=== PATIENT | female | born 1990 | race African-American/Black ===

== ENCOUNTER 2021-12-14 14:03 | Emergency (ER) | payer SELFPAY ==
[~2021-12-14] VITALS: Ht 162.6 cm; Wt 41.4 kg
[2021-12-14 14:14] VITALS: TEMP 98.3
[2021-12-14 14:37] LABS: MEAN CELL VOLUME 64 fl (80.0-100.0); MEAN CORPUSCULAR HGB CONC 30 g/dl (33.0-37.0); MEAN PLATELET VOLUME 11.4 fl (7.4-10.4); PLATELET COUNT 407 K/mm3 (130-400); RED BLOOD COUNT 4.72 M/mm3 (4.10-5.30); REDCELL DISTRIBUTION WIDTH-CV 18.5 % (11.5-14.5)
[2021-12-14 14:38] LABS: HEMATOCRIT 30.3 % (37.0-47.0); MEAN CORPUSCULAR HEMOGLOBIN 19 pg (27-31)
[2021-12-14 14:54] LABS: ALBUMIN 4.2 gm/dL (3.5-5.0); ALKALINE PHOSPHATASE 69 U/L (40-150); ANION GAP 14 mmol/L (7-16); AST,SGOT 9 U/L (5-34); BILIRUBIN,TOTAL 0.5 mg/dL (0.2-1.2); BLOOD UREA NITROGEN 7 mg/dL (7-19); CALCIUM 8.9 mg/dL (8.4-10.2); CARBON DIOXIDE 24 mmol/L (22-29); CHLORIDE 104 mmol/L (98-107); CREATININE, serum 0.76 mg/dL (0.57-1.11); GLUCOSE 97 mg/dL (70-99); LIPASE 220 U/L (8-78); SODIUM 142 mmol/L (136-145)
[2021-12-14 14:55] LABS: ALANINE AMINOTRANSFERASE < 6 U/L (0-55); POTASSIUM 2.9 mmol/L (3.5-4.5)
[2021-12-14 15:53] LABS: EOSINOPHIL 1 % (0-4); LYMPHOCYTE 23 % (20.0-51.0); NEUTROPHILS 71 % (42.0-75.2)
[2021-12-14 15:54] LABS: OVALOCYTES 1+
[2021-12-14 15:55] LABS: ANISOCYTOSIS 2+; HYPOCHROMIA 3+; MICROCYTOSIS 2+; PLATELET ESTIMATE INCREASED (NORMAL); SCHISTOCYTES 2+
[2021-12-14] MEDS ORDERED: K-TAB20 PO (16:17)
[2021-12-14 17:00] VITALS: BP 123/87; PULSE 85
[2021-12-15 07:47] LABS: PATHOLOGY DIFF REVIEW OK
== END 2021-12-14 17:00 | disposition home or self-care (01) ==
LOC: COL.ER 14:03
PROVIDERS: Nurse Practitioner Primary Care
DX: N83.202 Unspecified ovarian cyst, left side (principal); E87.6 Hypokalemia; D64.9 Anemia, unspecified; R74.8 Abnormal levels of other serum enzymes; K44.9 Diaphragmatic hernia without obstruction or gangrene; Z85.41 Personal history of malignant neoplasm of cervix uteri; Z98.890 Other specified postprocedural states; Z91.040 Latex allergy status; Z28.310 Unvaccinated for COVID-19
CPT/HCPCS: J3480; J7030; Q9967

== ENCOUNTER 2022-01-19 08:31 | Day surgery (SDC) | payer SELFPAY ==
[~2022-01-19 08:31] MED LIST: K-TAB20 PO
[2022-01-19] MEDS ORDERED: ZYRTEC 10MG10 MG PO (09:11)
[2022-01-19 11:30] VITALS: BP 126/88; PULSE 96; TEMP 97.3
--- NOTE | 2022-01-19 11:30 | NUR ---
PATIENT TO ROOM 9 VIA CART. ASSIST X 1 TO CHAIR. PATIENT REQUESTS ROOM TEMP WATER AND NOTHING TO EAT. MOM AT BEDSIDE. VITAL SIGNS WNL. WILL CONTINUE TO MONITOR.
[2022-01-19 11:45] VITALS: BP 120/88; PULSE 96
--- NOTE | 2022-01-19 11:45 | NUR ---
PATIENT IS ALERT AND ORIENTED. WAITING FOR DOCTOR TO SPEAK WITH HER. VITAL SIGNS WNL. MOM STILL AT BEDSIDE. WILL CONTINUE TO MONITOR.
[2022-01-19 12:00] VITALS: BP 124/94; PULSE 69
--- NOTE | 2022-01-19 12:00 | NUR ---
PATIENT IS READY FOR DISCHARGE. WAITING FOR DOCTOR TO COME SPEAK WITH PATIENT. VITAL SIGNS WNL. IV DISCONTINUED. DISCHARGE INSTRUCTIONS REVIEWED WITH PATIENT AND MOM. WILL DISCHARGE AFTER THE DOCTOR COMES IN.
== END 2022-01-19 12:37 | disposition home or self-care (01) ==
LOC: SDCO 08:31
DX: K57.30 Diverticulosis of large intestine without perforation or abscess without bleeding (principal); K29.50 Unspecified chronic gastritis without bleeding; K51.50 Left sided colitis without complications; K51.90 Ulcerative colitis, unspecified, without complications; K64.4 Residual hemorrhoidal skin tags
CPT/HCPCS: J2704; J7120

== ENCOUNTER 2022-02-13 16:43 | Emergency (ER) | payer MEDICAID ==
[~2022-02-13] VITALS: Ht 162.6 cm; Wt 45.5 kg
[~2022-02-13 16:43] MED LIST changes: +ZYRTEC 10MG10 MG PO
[2022-02-13 16:54] VITALS: TEMP 98.5
[2022-02-13 17:25] LABS: BASO % 0.2 % (0.0-2.0); GRAN # 9.8 K/mm3 (1.4-6.5); GRAN % 82.1 % (42.2-75.2); LYMPH # 1.8 K/mm3 (1.2-3.4); LYMPH % 15.4 % (20.0-51.0); MEAN CELL VOLUME 64 fl (80.0-100.0); MEAN CORPUSCULAR HGB CONC 29 g/dl (33.0-37.0); MEAN PLATELET VOLUME 11.3 fl (7.4-10.4); MONO # 0.2 K/mm3 (0.1-0.6); PLATELET COUNT 383 K/mm3 (130-400); RED BLOOD COUNT 4.17 M/mm3 (4.10-5.30); REDCELL DISTRIBUTION WIDTH-CV 20.6 % (11.5-14.5)
[2022-02-13 17:26] LABS: HEMATOCRIT 26.6 % (37.0-47.0); HEMOGLOBIN 7.7 g/dl (12.5-16.0); MEAN CORPUSCULAR HEMOGLOBIN 18 pg (27-31)
[2022-02-13 17:37] LABS: ALANINE AMINOTRANSFERASE 16 U/L (0-55); ALBUMIN 4.2 gm/dL (3.5-5.0); ALKALINE PHOSPHATASE 53 U/L (40-150); ANION GAP 15 mmol/L (7-16); AST,SGOT 14 U/L (5-34); BILIRUBIN,TOTAL 0.8 mg/dL (0.2-1.2); BLOOD UREA NITROGEN 10 mg/dL (7-19); C-REACTIVE PROTEIN 0.03 mg/dL (0.00-0.50); CALCIUM 9.2 mg/dL (8.4-10.2); CARBON DIOXIDE 20 mmol/L (22-29); CHLORIDE 105 mmol/L (98-107); CREATININE, serum 0.64 mg/dL (0.57-1.11); GLUCOSE 101 mg/dL (70-99); LIPASE 20 U/L (8-78); POTASSIUM 3.8 mmol/L (3.5-4.5); SODIUM 140 mmol/L (136-145); TOTAL PROTEIN 7.8 gm/dL (6.2-8.1)
[2022-02-13 17:44] LABS: TROPONIN-I < 0.010 ng/mL (0.00-0.033)
[2022-02-13 18:25] LABS: COLLECTION METHOD CLEAN CATCH
[2022-02-13 18:44] LABS: MUCOUS Present (NOT PRESENT); PH 6 (5-8); URINE APPEARANCE Clear (CLEAR/HAZY); URINE BACTERIA None Seen /hpf (NONE SEEN); URINE BLOOD 1+ (NEGATIVE); URINE COLOR Yellow (YELLOW); URINE GLUCOSE Negative (NEGATIVE); URINE KETONE Negative (NEGATIVE); URINE NITRATE Negative (NEGATIVE); URINE PROTEIN(semi-quant) Negative (NEGATIVE); URINE UROBILINOGEN Negative (NEGATIVE)
[2022-02-13] MEDS ORDERED: NORCO 325 MG-51 TAB PO (19:53)
[2022-02-13 20:10] VITALS: BP 118/76; PULSE 82
== END 2022-02-13 20:10 | disposition home or self-care (01) ==
LOC: COL.ER 16:43
PROVIDERS: Nurse Practitioner
DX: D64.89 Other specified anemias (principal); R10.13 Epigastric pain; R07.89 Other chest pain; Z91.040 Latex allergy status; Z87.19 Personal history of other diseases of the digestive system; Z28.310 Unvaccinated for COVID-19
CPT/HCPCS: J2270; J2405; J7030

== ENCOUNTER 2022-12-07 08:29 | Emergency (ER) | payer MEDICAID ==
[~2022-12-07] VITALS: Ht 162.6 cm; Wt 45.5 kg
[~2022-12-07 08:29] MED LIST changes: +NORCO 325 MG-51 TAB PO
[2022-12-07 08:33] VITALS: TEMP 98.3
[2022-12-07] MEDS ORDERED: PREDNISONE20 MG PO (09:52)
[2022-12-07 09:58] VITALS: BP 116/86; PULSE 99
== END 2022-12-07 10:06 | disposition home or self-care (01) ==
LOC: COL.ER 08:29
DX: M25.461 Effusion, right knee (principal); R60.0 Localized edema; H53.9 Unspecified visual disturbance; M19.90 Unspecified osteoarthritis, unspecified site; Z28.310 Unvaccinated for COVID-19
CPT/HCPCS: J7512